=== PATIENT | female | born 2000 | race Two or more races ===

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

== ENCOUNTER 2021-02-13 11:50 | Emergency (ER) | payer SELFPAY ==
[~2021-02-13] VITALS: Ht 165.1 cm; Wt 92.0 kg
[~2021-02-13 11:50] MED LIST: CHOL500016 PO; FOLI1TAB16 PO; HYDR-3164 PO; NAPR-514 PO; PREN1TAB58 PO
[2021-02-13 12:17] LABS: BILIRUBIN,URINE NEGATIVE (NEG); CLARITY,URINE CLEAR; COLOR,URINE YELLOW; NITRITE,URINE NEGATIVE (NEG); PROTEIN,URINE NEGATIVE (NEG-TRACE); UROBILINOGEN,URINE 0.2 mg/dL (0.2 mg/dL)
--- NOTE | 2021-02-13 12:23 | PHYS DOC ---
Past Medical History Past Medical History: No Pertinent History Past Surgical History: No Surgical History Smoking Status: Never Smoker Alcohol Use: None General Adult EDM: Chief Complaint: ABDOMINAL PAIN HPI: HPI: Patient is a 20 year old female who presented to ER due to low abdominal pain on the left side since yesterday. Patient denies any nausea vomiting. Patient states she also have her menstrual PERIOD daughter 2 days ago. Patient denies any fever, no cough, no nausea vomiting. Patient states she is spotting at this time. Patient described the pain at sharp and aching in nature. Review of Systems: Review of Systems: Constitutional: Denies fever or chills. [] Eyes: Denies change in visual acuity. [] HENT: Denies nasal congestion or sore throat. [] Respiratory: Denies cough or shortness of breath. [] Cardiovascular: Denies chest pain or edema. [] GI: Positive for lower abdominal pain associated with no nausea vomiting or diarrhea. : Denies dysuria. [] Musculoskeletal: Denies back pain or joint pain. [] Integument: Denies rash. [] Neurologic: Denies headache, focal weakness or sensory changes. [] Endocrine: Denies polyuria or polydipsia. [] Lymphatic: Denies swollen glands. [] Psychiatric: Denies depression or anxiety. [] Heart Score: C/O Chest Pain: N/A Risk Factors: Risk Factors: DM, Current or recent (<one month) smoker, HTN, HLP, family history of CAD, obesity. Risk Scores: Score 0 - 3: 2.5% MACE over next 6 weeks - Discharge Home Score 4 - 6: 20.3% MACE over next 6 weeks - Admit for Clinical Observation Score 7 - 10: 72.7% MACE over next 6 weeks - Early Invasive Strategies Allergies: Allergies: Allergies Coded Allergies Type Severity Reaction Last Updated Verified No Known Drug Allergies 12/12/17 No Physical Exam: PE: Constitutional: Well developed, well nourished, no acute distress, non-toxic appearance. [] HENT: Normocephalic, atraumatic, bilateral external ears normal, oropharynx moist, no oral exudates, nose normal. [] Eyes: PERRLA, EOMI, conjunctiva normal, no discharge. [] Neck: Normal range of motion, no tenderness, supple, no stridor. [] Cardiovascular:Heart rate regular rhythm, no murmur [] Lungs & Thorax: Bilateral breath sounds clear to auscultation [] Abdomen: Bowel sounds normal, soft, there is tenderness in lower abdominal area, no masses, no pulsatile masses. [] Skin: Warm, dry, no erythema, no rash. [] Back: No tenderness, no CVA tenderness. [] Extremities: No tenderness, no cyanosis, no clubbing, ROM intact, no edema. [] Neurologic: Alert and oriented X 3, normal motor function, normal sensory function, no focal deficits noted. [] Psychologic: Affect normal, judgement normal, mood normal. [] Current Patient Data: Labs: Laboratory Tests Test 02/13/21 12:00 POC Urine HCG, Qualitative Hcg negative (Negative) Vital Signs: Vital Signs Date Time Temp Pulse Resp B/P (MAP) Pulse Ox O2 Delivery O2 Flow Rate FiO2 02/13/21 11:51 97.9 86 18 116/72 (87) 99 Room Air 97.9 EKG: EKG: [] Radiology/Procedures: Radiology/Procedures: [facility] [address] [place] [address] IMAGING REPORT Signed PATIENT: SG BARRAGAN MACCOUNT: [id number] : 2000 LOCATION: ER AGE: 20 SEX: F EXAM STATUS: REG ER ORD. PHYSICIAN: ABDELRAHMAN LEWIS DO REASON: LOWER ABDOMINAL PAIN SINCE YESTERDAY PROCEDURE: CT ABD PELV W/ IV CONTRST ONLY Exam Date: 02/13/2021 12:[address] ABDOMEN+PELVIS W Indication: Reason: LOWER ABDOMINAL PAIN SINCE YESTERDAY / Spl. Instructions: [id number] 75ML / History: TECHNIQUE: CT examination of the abdomen and pelvis was performed following the administration of nonionic intravenous contrast. One or more of the following dose reduction techniques were utilized: *Automated exposure control (AEC) *Adjustment of mA and/or kV according to patient size *Use of iterative reconstruction technique *CT scan done according to ALARA, or ALARA/IMAGE GENTLY FINDINGS: The visualized lung bases are clear. The liver, gallbladder, spleen, pancreas, adrenal glands and kidneys are normal. Urinary bladder is normal in appearance. There is a 4.5 cm left adnexal cyst. Trace free fluid in the pelvis is nonspecific, likely physiologic. There is no bowel obstruction or inflammation. No evidence for acute appendicitis. No significant atherosclerotic calcifications are seen. No lymphadenopathy is seen. Osseous structures are intact. IMPRESSION: 4.5 cm left adnexal cyst noted. Otherwise no evidence of acute intra-abdominal pathology. Electronically signed by: Tila Young MD (02/13/2021 1:29 PM) [id number] DICTATED and SIGNED BY: TILA YOUNG MD DATE: 02/13/21 [id number] 0 [][facility] [address] [place], [place] [id number] IMAGING REPORT Signed PATIENT: SG BARRAGAN MACCOUNT: [id number] : 2000 LOCATION: ER AGE: 20 SEX: F EXAM STATUS: REG ER ORD. PHYSICIAN: ABDELRAHMAN LEWIS DO REASON: left side pelvic pain PROCEDURE: PELVIS ULTRASOUND US PELVIS COMPLETE History: Reason: left side pelvic pain / Spl. Instructions: / History: Comparison: CT February 13, 2021 Technique: Grayscale and color Doppler imaging of the pelvis was performed using transabdominal technique. Findings: The uterus measures 8.7 x 5.5 x 4.5 cm. Uterus has an unremarkable appearance. The endometrial stripe measures 6 mm. Right ovary measures 4.5 x 2.3 x 2.1 cm. Left ovary measures 6.4 x 4.3 x 4.0 cm. Left ovarian cyst measures 5.6 cm. Normal Doppler flow to the ovaries. No adnexal masses are seen. IMPRESSION: 1. Left ovarian cyst. Recommend one-year follow-up. Electronically signed by: Jose Ramon Bess DO (02/13/2021 1:58 PM) [id number] DICTATED and SIGNED BY: JOSE RAMON BESS DO DATE: 02/13/21 [id number] 0 Course & Med Decision Making: Course & Med Decision Making Pertinent Labs and Imaging studies reviewed. (See chart for details) Patient is a 20-year-old female who presented to ER due to left lower abdominal pain, CT scan her abdomen pelvic show a large adnexa cysts on the left side, pelvic ultrasound showed that she had a 5.6 cm ovarian cyst, no evidence of torsion. Patient was given Toradol IV in ER for pain control, patient felt much better. Patient will be discharged home. Jose Disclaimer: Jose Disclaimer: This electronic medical record was generated, in whole or in part, using a voice recognition dictation system. 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 Patient Instructions: Ovarian Cyst Additional Instructions: Thank you for visiting our Emergency Department. We appreciate you trusting us with your care. If any additional problems come up don't hesitate to return to visit us. Please follow up with your primary care provider so they can plan additional care if needed and know about the problem that you had. If symptoms worsen come back to the Emergency Department. Any concerning symptoms that start such as chest pain, shortness of air, weakness or numbness on one side of the body, running high fevers or any other concerning symptoms return to the ER. Scripts Naproxen Sodium (ANAPROX DS) 550 Mg Tablet 1 TAB PO BID PRN for PAIN for 15 Days, #30 TAB 0 Refills Prov: ABDELRAHMAN LEWIS DO 02/13/21 ABDELRAHMAN LEWIS DO Feb 13, 2021 12:23
[2021-02-13 12:27] LABS: BACTERIA,URINE MODERATE /HPF (0-FEW); RBC,URINE TNTC /HPF (0-2)
[2021-02-13 12:30] LABS: BASO % 1 % (0-3); EOS % 1 % (0-3); HEMATOCRIT 30.4 % (36.0-47.0); HEMOGLOBIN 9.4 g/dL (12.0-15.5); LYMPH # 2.2 x10^3/uL (1.0-4.8); LYMPH % 27 % (24-48); MEAN CORPUSCULAR HEMOGLOBIN 21 pg (25-35); MEAN CORPUSCULAR HGB CONC 31 g/dL (31-37); MEAN CORPUSCULAR VOLUME 69 fL (79-100); MONO # 0.8 x10^3/uL (0.0-1.1); MONO % 10 % (0-9); NEUT # 5.2 x10^3/uL (1.8-7.7); NEUT % 62 % (31-73); PLATELET COUNT 446 x10^3/uL (140-400); RED BLOOD COUNT 4.43 x10^6/uL (3.50-5.40); RED CELL DISTRIBUTION WIDTH 17.5 % (11.5-14.5); WHITE BLOOD COUNT 8.3 x10^3/uL (4.0-11.0)
[2021-02-13] MEDS: KETOROLAC 30 MG/ML VIAL. IVP ONE (12:32)
[2021-02-13 12:39] LABS: CALCIUM 8.6 mg/dL (8.5-10.1); CREATININE 0.7 mg/dL (0.6-1.0); GFR 107.8; POTASSIUM 3.7 mmol/L (3.5-5.1)
[2021-02-13 12:45] LABS: ALBUMIN 3.2 g/dL (3.4-5.0); ALBUMIN/GLOBULIN RATIO 0.7 (1.0-1.7); TOTAL BILIRUBIN 0.2 mg/dL (0.2-1.0); TOTAL PROTEIN 7.5 g/dL (6.4-8.2)
[2021-02-13 12:58] LABS: ANISOCYTOSIS PRESENT; HYPOCHROMIA PRESENT; MICROCYTOSIS PRESENT; PLT ESTIMATE INCREASED (ADEQUATE); POLYCHROMASIA PRESENT
[2021-02-13] MEDS ORDERED: CONTRAST GIVEN. MC PRN (13:00)
[2021-02-13] MEDS: IOHEXOL 300 MG/ML 100ML VIAL. IV ONE (13:08)
--- NOTE | 2021-02-13 13:31 | RAD ---
Exam Date: 02/13/2021 12:[address] ABDOMEN+PELVIS W Indication: Reason: LOWER ABDOMINAL PAIN SINCE YESTERDAY / Spl. Instructions: [id number] 75ML / History: TECHNIQUE: CT examination of the abdomen and pelvis was performed following the administration of no nionic intravenous contrast. One or more of the following dose reduction techniques were utilized: *Automated exposure control (AEC) *Adjustment of mA and/or kV according to patient size *Use of iterative reconstruction technique *CT scan done according to ALARA, or ALARA/IMAGE GENTLY FINDINGS: The visualized lung bases are clear. The liver, gallbladder, spleen, pancreas, adrenal glands and kidneys are normal. Urinary bladder is normal in appearance. There is a 4.5 cm left adnexal cyst. Trace free fluid in the pelvis is nonspecific, likely physiologic. There is no bowel obstruction or inflammation. No evidence for acute appendicitis. No significant atherosclerotic calcifications are seen. No lymphadenopathy is seen. Osseous structures are intact. IMPRESSION: 4.5 cm left adnexal cyst noted. Otherwise no evidence of acute intra-abdominal pathology. Electronically signed by: Izaiah Young MD (02/13/2021 1:29 PM) [id number]
--- NOTE | 2021-02-13 14:01 | RAD ---
US PELVIS COMPLETE History: Reason: left side pelvic pain / Spl. Instructions: / History: Comparison: CT February 13, 2021 Technique: Grayscale and color Doppler imaging of the pelvis was performed using transabdominal techn ique. Findings: The uterus measures 8.7 x 5.5 x 4.5 cm. Uterus has an unremarkable appearance. The endometrial stri pe measures 6 mm. Right ovary measures 4.5 x 2.3 x 2.1 cm. Left ovary measures 6.4 x 4.3 x 4.0 cm. Left ovarian cyst measures 5.6 cm. Normal Doppler flow to the ovaries. No adnexal masses are seen. IMPRESSION: 1. Left ovarian cyst. Recommend one-year follow-up. Electronically signed by: Jose Ramon Bess DO (02/13/2021 1:58 PM) [id number]
[2021-02-13] MEDS ORDERED: NAPR-682 PO (14:09)
[2021-02-13 14:15] VITALS: BP 103/57
== END 2021-02-13 14:22 | disposition home or self-care (01) ==
LOC: ER 11:50
DX: N83.202 Unspecified ovarian cyst, left side (principal)
CPT/HCPCS: 36415; 74177; 76856; 80053; 81001; 81025; 83735; 85025; 87086; 96374; 99285; J1885; Q9967

== ENCOUNTER 2021-05-16 08:29 | Day surgery (SDC) | payer SELFPAY ==
[~2021-05-16] VITALS: Ht 165.1 cm; Wt 90.0 kg
[~2021-05-16 08:29] MED LIST changes: +CEPH500T PO; +HYDROmorphone 2 MG/ML VIAL IVP PRN; +IV RINGERS,LACTATED 1000ML 1,000 ML IV SCH; +MORPHINE SULFATE 2 MG/ML INJ. IVP PRN; +NAPR-682 PO; +NAPR-695 PO; +NITR100C62 PO; +ONDA4TAB12 PO; +PROCHLORPERAZINE 10 MG/2 ML VIAL. IVP PRN; +ceFAZolin SODIUM IV Push 1 GM VIAL. IVP PRN; +fentaNYL PF VIAL 100 MCG/2 ML VIAL IVP PRN
[2021-05-16] MEDS ORDERED: LIDOCAINE 2% PF 5 ML VIAL. ONE (09:38)
[2021-05-16] MEDS ORDERED: MIDAZOLAM HCL/PF 2 MG/2 ML VIAL. ONE (09:38)
[2021-05-16] MEDS ORDERED: ROCURONIUM 50 MG/5 ML VIAL. ONE (09:38)
[2021-05-16] MEDS ORDERED: FAMOTIDINE 20 MG/2 ML VIAL ONE (09:38)
[2021-05-16] MEDS ORDERED: ONDANSETRON PF 4 MG/2 ML VIAL. ONE ×2 (09:38→09:39)
[2021-05-16] MEDS ORDERED: fentaNYL PF VIAL 100 MCG/2 ML VIAL ONE ×2 (09:38→11:35)
[2021-05-16] MEDS ORDERED: PROPOFOL 10 MG/ML (20ML) VIAL. IV ONE (09:38)
[2021-05-16] MEDS ORDERED: DEXAMETHASONE SOD PHOS 4 MG/ML VIAL ONE (09:39)
[2021-05-16] MEDS ORDERED: BUPIVACAINE-EPI 0.25%-1:200000 MPF 30 ML VIAL. ONE (09:47)
[2021-05-16] MEDS ORDERED: SURGICEL HEMOSTAT 4X8 EACH. ONE (09:47)
[2021-05-16] MEDS ORDERED: KETOROLAC 30 MG/ML VIAL. ONE (10:47)
[2021-05-16] MEDS ORDERED: DESFLURANE 61 TO 120 MINUTES IH ONE (10:47)
[2021-05-16] MEDS ORDERED: SEVOFLURANE > 120 MINUTES. IH ONE (10:47)
[2021-05-16] MEDS ORDERED: GLYCOPYRROLATE 1 MG/5 ML VIAL. ONE (10:48)
[2021-05-16] MEDS ORDERED: NEOSTIGMINE METHYLSULFATE 5 MG/5 ML SYRINGE. ONE (10:49)
--- NOTE | 2021-05-16 10:59 | PDOC ---
BRIEF OPERATIVE NOTE Date: May 16, 2021 Pre-Op Diagnosis PAUL Cyst Post-Op Diagnosis Left Paratubal Cyst Procedure Performed [facility] Left Paratubal Cystectomy Surgeon Dr. Heaton Anesthesia Type: General Blood Loss 10 ml Specimens Obtained Left paratubal cyst wall Findings nml uterus, nml ovaries sherley., nml Right fallopian tube; Left paratubal cyst 6 cm size Complications none Operative Note see dictation JUSTINO HEATON Jr, MD May 16, 2021 10:59
[2021-05-16] MEDS ORDERED: OXYC1TAB15 PO (11:00)
--- NOTE | 2021-05-16 11:03 | DISCH ---
DISCHARGE INSTRUCTIONS Condition on Discharge Condition on Discharge: Stable Activity After Discharge Activity Instructions for Disc: Activity as tolerated Lifting Instructions after Dis: No heavy lifting Driving Instructions after Dis: Do not drive today Diet after Discharge Diet after Discharge: Regular Contacting the D[facility] after DC Call your doctor for: Concerns you may have Follow-Up Follow up with: Dr. Heaton in 1 week JUSTINO HEATON Jr, MD May 16, 2021 11:03
[2021-05-16] MEDS: fentaNYL PF VIAL 100 MCG/2 ML VIAL IVP PRN ×2 (11:47→12:04)
[2021-05-16] MEDS ORDERED: oxyCODONE/APAP 5/325 1 TAB TABLET PO ONE (12:00)
--- NOTE | 2021-05-16 12:06 | OP ---
DATE OF SURGERY: 05/16/2021 PREOPERATIVE DIAGNOSIS: Left ovarian cyst. POSTOPERATIVE DIAGNOSIS: Left paratubal cyst. PROCEDURE: Laparoscopic left paratubal cystectomy. SURGEON: Dr. Nila Heaton. ANESTHESIA: GETA. ESTIMATED BLOOD LOSS: 10 mL. COMPLICATIONS: None. FINDINGS: Normal uterus, normal ovaries bilaterally. Normal right fallopian tube. Left paratubal cyst, 6 cm size. SUMMARY: This is a 20-year-old who presented with persistent suspected left ovarian cyst and abdominal pain. She was counseled on the risks, benefits and expectations of laparoscopic left ovarian cystectomy and voiced clear understanding to proceed. DESCRIPTION OF PROCEDURE: The patient was taken to surgery suite and placed in dorsal lithotomy position, was prepped with Betadine solution for vaginal prep and ChloraPrep for abdominal prep. After adequate anesthesia, bivalve speculum was placed vaginally. The anterior lip of the cervix was grasped with a single tooth tenaculum. Uterine acorn manipulator was then placed. The bivalve speculum was removed. Attention was now placed on the abdomen. A small transverse skin incision was made just below the umbilicus with a scalpel. The Veress needle was then placed through the infraumbilical incision site. The abdomen was allowed to insufflate up to 1.5 liters of CO2 gas. The Veress needle was then removed. A 5 mm trocar was placed. Scope was positioned. The uterus appeared normal size. The right fallopian tube and ovary appeared normal. The left ovary appeared normal. There was a left paratubal cyst of 6 cm size. Two additional incisions were made in the left lower quadrant, through which a 5 mm trocar and an 8 mm trocar was placed with the aid of Paolo graspers. The left paratubal cyst was then grasped and isolated with the aid of EnSeal device. The paratubal cyst wall was dissected away from the fallopian tube and entered with the EnSeal device. Suction irrigation was utilized to decompress the left paratubal cyst. The remainder of the left paratubal cyst was removed with blunt dissection and the aid of EnSeal device. The fallopian tube was intact and without any injury. The left paratubal cyst wall was removed. Suction irrigation was utilized to verify good hemostasis. A small amount of normal saline was left in the posterior cul-de-sac. The trocars were then removed under direct visualization. The abdomen was allowed to deflate as much as possible along with mechanical manipulation. Three skin incisions were reapproximated using 4-0 Vicryl suture in subcuticular manner. 0.25% Marcaine with epinephrine was injected at each incision site. The uterine acorn manipulator and single tooth tenaculum were then removed. The patient tolerated the procedure well and was taken to recovery room in stable condition. Sponge and needle count correct x 3. MICHELLE DR: Antionette TID: [id number]
[2021-05-16 12:32] VITALS: BP 106/58
--- NOTE | 2021-05-20 15:09 | PATHOLOGY ---
[facility] Accession Number: [id number] . 01 Material submitted: . ovary - PARATUBAL CYST. Modifiers: left, PARATUBAL . 01 Clinical history: . LEFT OVARIAN CYST LEFT PARATUBAL CYSTECTOMY . 02 Diagnosis: Left paratubal cystectomy: - Paratubal cyst. (JPM:[facility]; 05/20/2021) [facility] 05/20/2021 0851 Local . 02 Comment: There is no evidence of malignancy. (JPM:[facility]; 05/20/2021) . 02 Electronically signed: . Jax Burch MD, Pathologist NPI- [id number] . 01 Gross description: . Received in formalin labeled "Flormannieabary, Emy and paratubal cyst". Received is a previously opened paratubal cyst measuring 3.0 x 0.2 x 1.5 cm with a wall thickness measuring 0.1 cm. Sectioning reveals no other grossly apparent lesions. The specimen is representatively submitted in cassette B1.([facility]; 05/17/2021) [facility] 05/17/2021 1804 Local . 02 Pathologist provided ICD-10: N83.8 . 02 CPT . 841469 Specimen Comment: A courtesy copy of this report has been sent to [phone] Specimen Comment: Report sent to Performed at: 01 [facility] [address], [place] [id number] MD Jax Schreiber MD Phone: [phone] Performed at: 02 [facility] [address] [place], [place] [id number] MD Jax Burch MD Phone: [phone]
== END 2021-05-16 13:15 | disposition home or self-care (01) ==
LOC: SURG 08:29
PROVIDERS: ATTEND Obstetrics & Gynecology
DX: N83.8 Other noninflammatory disorders of ovary, fallopian tube and broad ligament (principal); N83.202 Unspecified ovarian cyst, left side; E66.9 Obesity, unspecified; Z79.899 Other long term (current) drug therapy; Z98.890 Other specified postprocedural states; Z88.8 Allergy status to other drugs, medicaments and biological substances
CPT/HCPCS: 58662; 81025; 88304; A4930; A6219; J0690; J1100; J1885; J2250; J2405; J2704; J2710; J3010; J3490; A4223

== ENCOUNTER 2022-01-13 21:50 | Emergency (ER) | payer SELFPAY ==
[~2022-01-13] VITALS: Ht 165.1 cm; Wt 94.5 kg
[~2022-01-13 21:50] MED LIST changes: -HYDROmorphone 2 MG/ML VIAL IVP PRN; -IV RINGERS,LACTATED 1000ML 1,000 ML IV SCH; -MORPHINE SULFATE 2 MG/ML INJ. IVP PRN; +OXYC1TAB15 PO; -PROCHLORPERAZINE 10 MG/2 ML VIAL. IVP PRN; -ceFAZolin SODIUM IV Push 1 GM VIAL. IVP PRN; -fentaNYL PF VIAL 100 MCG/2 ML VIAL IVP PRN
[2022-01-13 22:45] VITALS: BP 126/79
[2022-01-14] MEDS ORDERED: AMOX1TAB11 PO (00:06)
--- NOTE | 2022-01-14 00:07 | PHYS DOC ---
Past Medical History Past Medical History: No Pertinent History Past Surgical History: No Surgical History Smoking Status: Never Smoker Alcohol Use: None General Adult EDM: Chief Complaint: Congestion HPI: HPI: 21-year-old female who denies any significant past medical history, presents the ED with her boyfriend, (patient consents to his/her/their knowledge and involvement in pts' medical care), complains of "nasal burning," nasal congestion and clogged ears (right ear worse than left) with associated chills and dizziness for the past 3 days. Has been vaccinated for COVID. Non-smoker. Has no underlying lung disease. No known sick contacts. Boyfriend is asymptomatic. Review of Systems: Review of Systems: Constitutional: Denies fever or confusion Eyes: Denies change in visual acuity. [] HENT: Denies rhinorrhea or sore throat. [] Respiratory: Denies cough or shortness of breath. [] Cardiovascular: Denies chest pain or edema. [] GI: Denies abdominal pain, nausea, vomiting, bloody stools or diarrhea. [] : Denies dysuria or vaginal bleeding Musculoskeletal: Denies back pain or joint pain. [] Integument: Denies rash or diaphoresis Neurologic: Denies headache, focal weakness or sensory changes. [] Endocrine: Denies polyuria or polydipsia. [] Lymphatic: Denies swollen glands. [] Psychiatric: Denies depression or anxiety. [] Heart Score: C/O Chest Pain: No Risk Factors: Risk Factors: DM, Current or recent (<one month) smoker, HTN, HLP, family history of CAD, obesity. Risk Scores: Score 0 - 3: 2.5% MACE over next 6 weeks - Discharge Home Score 4 - 6: 20.3% MACE over next 6 weeks - Admit for Clinical Observation Score 7 - 10: 72.7% MACE over next 6 weeks - Early Invasive Strategies Allergies: Allergies: Allergies Coded Allergies Type Severity Reaction Last Updated Verified pineapple Allergy Unknown Swelling 05/16/21 Yes Physical Exam: PE: Constitutional: Well developed, well nourished, no acute distress, non-toxic appearance, HENT: Normocephalic, atraumatic, erythematous right tympanic membrane with effusion, mildly erythematous left tympanic membrane with no effusion, no pharyngeal erythema or exudates, Eyes: EOMI, conjunctiva normal, no discharge. Neck: Normal range of motion, supple, right anterior cervical lymphadenopathy Cardiovascular: S1/2 present, regular rhythm Lungs & Thorax: Speaking in full sentences, bilateral equal chest rise, no tachypnea or increased work of breathing, nasal voice Skin: Warm, dry, no erythema, no rash. [] Extremities: No tenderness, no cyanosis, Neurologic: Alert and oriented X 3, normal motor function, normal sensory function, no focal deficits noted. [] Psychologic: Affect normal, judgement normal, mood normal. [] Current Patient Data: Vital Signs: Vital Signs Date Time Temp Pulse Resp B/P (MAP) Pulse Ox O2 Delivery O2 Flow Rate FiO2 01/13/22 22:45 98.5 87 17 126/79 (95) 96 Room Air 98.5 EKG: EKG: [] Radiology/Procedures: Radiology/Procedures: [] Course & Med Decision Making: Course & Med Decision Making Pertinent Labs and Imaging studies reviewed. (See chart for details) Concern for right otitis media, in the setting of upper respiratory infection. Patient is well-appearing, afebrile and tolerating oral intake. Will prescribe Augmentin. Will discharge home with strict ED return precautions were given for neck stiffness, blurry vision, headache or dehydration. Encouraged urgent outpatient follow-up with PMD for repeat evaluation. Life-threatening processes were considered but are low suspicion at this time, given history, physical exam and ED workup. Pt was educated on all prescription medications and adverse effects. All patient's questions were answered and pt was stable at time of discharge. Life/limb-threatening differential includes but is not limited to, auricular hematoma or perichondritis, malignant otitis externa, otitis externa or media, otomycosis, bullous myringitis, mastoiditis, hearing loss or vestibular disorder, tympanic membrane rupture/perforation/barotrauma, herpes zoster oticus , contact dermatitis, cholesteatoma, meningitis/encephalitis, brain abscess or venous/cavernous/cerebral sinus thrombosis. I have spoken with the patient and/or caregivers. I explained the patient's condition, diagnoses and treatment plan based on the information available to me at this time. I have answered the patient and/or caregiver's questions and addressed any concerns. The patient and/or caregivers have a good understanding of patient's diagnosis, condition and treatment plan as can be expected at this point. Vital signs have been stable. Patient's condition is stable and appropriate for discharge from the emergency department. Patient will pursue further outpatient evaluation with primary care physician or other designated or consulting physician as outlined in the discharge instructions. The patient and/or caregivers are agreeable to this plan of care and follow-up instructions have been explained in detail. The patient and/or caregivers have received these instructions in written form and have expressed an understanding of the discharge instructions. The patient and/or caregivers are aware that any significant change of condition or worsening of symptoms should prompt immediate return to this or the closest emergency department or call to 911. Jose Disclaimer: Qinec Disclaimer: This electronic medical record was generated, in whole or in part, using a voice recognition dictation system. Departure Departure Impression: Primary Impression: Otitis media Additional Impression: Upper respiratory infection Disposition: HOME / SELF CARE / HOMELESS Condition: STABLE Referrals: CANDIDO LR MD (PCP) Follow-up with your primary care physician in 24 to 48 hours OR FOLLOW UP WITH FAMILY MEDICINE: [address] [place] [address] Patient Instructions: Otitis Media with Effusion, Upper Respiratory Infection, Adult Additional Instructions: Return to ED immediately if your oxygen level drops below 90% (purchase a pulse oximetry at a medical supply store), difficulties breathing including rapid breathing or increased work of breathing (skin sucking under ribs), chest pain or stroke-like symptoms (facial droop, speech changes, arm/leg weakness). EMERGENCY DEPARTMENT GENERAL DISCHARGE INSTRUCTIONS Thank you for coming to [facility] Emergency Department (ED) today and trusting us with you care. We trust that you had a positive experience in our Emergency Department. If you wish to speak to the department management, you may call the Director at [phone]. YOUR FOLLOW UP INSTRUCTIONS ARE FOLLOWS: 1. Do you have a private Doctor? If you do not have a private doctor, please ask for a resource list of physicians or clinics that may be able to assist you with follow up care. 2. The Emergency Physicain has interpreted your x-rays. The X-Ray specialist will also review them. If there is a change in the findings, you will be notified in 48 hours when at all possible. 3. A lab test or culture has been done, your results will be reviewed and you w ill be notified if you need a change in treatment. ADDITIONAL INSTRUCTIONS AND INFORMATION: 1. Your care today has been supervised by a physician who is specially trained in emergency care. Many problems require more than one evaluation for a complete diagnosis and treatment. We recommend that you schedule your follow up appointment as recommended to ensure complete treatment of you illness or injury. If you are unable to obtain follow up care and continue to have a problem, or if your condition worsens, we recommend that you return to the ED. 2. We are not able to safely determine your condition over the phone nor are we able to give sound medical advice over the phone. For these safety reasons, if you call for medical advice we will ask you to come to the ED for further evaluation. 3. If you have any questions regarding these discharge instructions please call the ED at [phone]. SAFETY INFORMATION: In the interest of safety, wellness, and injury prevention; we encourage you to wear your sealbelt, if you smoke; quite smoking, and we encourage family to use a protective helmet for bicycling and other sporting events that present an increased risk for head injury. IF YOUR SYMPTOMS WORSEN OR NEW SYMPTOMS DEVELOP, OR YOU HAVE CONCERNS ABOUT YOUR CONDITION; OR IF YOUR CONDITION WORSENS WHILE YOU ARE WAITING FOR YOUR FOLLOW UP APPOINTMENT; EITHER CONTACT YOUR PRIMARY CARE DOCTOR, THE PHYSICIAN WHOSE NAME AND NUMBER YOU WERE GIVEN, OR RETURN TO THE ED IMMEDIATELY. Scripts Amoxicillin/Potassium Clav (AMOX TR-K CLV 875-125 MG TAB) 1 Each Tablet 1 TAB PO BID for 10 Days, #20 TAB Prov: HALLEY GARCIA DO 01/14/22 HALLEY GARCIA DO Jan 14, 2022 00:06
== END 2022-01-14 00:14 | disposition home or self-care (01) ==
LOC: ER 21:50
DX: H66.93 Otitis media, unspecified, bilateral (principal); J06.9 Acute upper respiratory infection, unspecified; Z91.018 Allergy to other foods
CPT/HCPCS: 99283

== ENCOUNTER 2022-03-10 15:15 | Emergency (ER) | payer SELFPAY ==
[~2022-03-10] VITALS: Ht 160 cm; Wt 94.3 kg
[~2022-03-10 15:15] MED LIST changes: +AMOX1TAB11 PO
[2022-03-10] MEDS ORDERED: ONDANSETRON PF 4 MG/2 ML VIAL. IVP ONE (17:15)
[2022-03-10] MEDS ORDERED: IV NORMAL SALINE 1000ML BAG 1,000 ML IV ONE (17:15)
[2022-03-10 17:47] LABS: BACTERIA,URINE MODERATE /HPF (0-FEW); RBC,URINE 0 /HPF (0-2)
[2022-03-10 18:06] LABS: BASO # 0.1 x10^3/uL (0.0-0.2); BASO % 1 % (0-3); EOS % 1 % (0-3); HEMATOCRIT 35.7 % (36.0-47.0); HEMOGLOBIN 11.7 g/dL (12.0-15.5); LYMPH # 1.9 x10^3/uL (1.0-4.8); LYMPH % 21 % (24-48); MEAN CORPUSCULAR HEMOGLOBIN 26 pg (25-35); MEAN CORPUSCULAR HGB CONC 33 g/dL (31-37); MEAN CORPUSCULAR VOLUME 80 fL (79-100); MONO # 0.7 x10^3/uL (0.0-1.1); MONO % 7 % (0-9); NEUT # 6.4 x10^3/uL (1.8-7.7); NEUT % 70 % (31-73); PLATELET COUNT 291 x10^3/uL (140-400); RED BLOOD COUNT 4.49 x10^6/uL (3.50-5.40); RED CELL DISTRIBUTION WIDTH 15.9 % (11.5-14.5); WHITE BLOOD COUNT 9.1 x10^3/uL (4.0-11.0)
[2022-03-10 18:23] LABS: CALCIUM 9.1 mg/dL (8.5-10.1); CREATININE 0.7 mg/dL (0.6-1.0); GFR 106.7; POTASSIUM 3.5 mmol/L (3.5-5.1)
[2022-03-10 18:30] LABS: ALBUMIN 3.2 g/dL (3.4-5.0); ALBUMIN/GLOBULIN RATIO 0.7 (1.0-1.7); TOTAL BILIRUBIN 0.3 mg/dL (0.2-1.0); TOTAL PROTEIN 7.8 g/dL (6.4-8.2)
[2022-03-10] MEDS ORDERED: cefTRIAXone IV Push 1 GM VIAL. IVP ONE (19:30)
[2022-03-10] MEDS ORDERED: CEPH500T PO (21:46)
--- NOTE | 2022-03-10 21:47 | PHYS DOC ---
Past Medical History Past Medical History: No Pertinent History Past Surgical History: No Surgical History Smoking Status: Never Smoker Alcohol Use: None General Adult EDM: Chief Complaint: VOMITING IN HPI: HPI: Patient is a 21 year old female 2 para 1 currently 6 weeks presenting to the ED today with nausea and vomiting for 4 days. Patient denies any fever. Reports generalized lower abdominal pain described as mild and crampy. Denies any vaginal bleeding. Denies any concerns for STDs or unusual vaginal discharge. Denies anything specifically exacerbating or relieving her abdominal pain but she states it is intermittent. Review of Systems: Review of Systems: Constitutional: Denies fever or chills. [] Eyes: Denies change in visual acuity. [] HENT: Denies nasal congestion or sore throat. [] Respiratory: Denies cough or shortness of breath. [] Cardiovascular: Denies chest pain or edema. [] GI: Reports lower abdominal pain, nausea and vomiting : Denies dysuria. [] Musculoskeletal: Denies back pain or joint pain. [] Integument: Denies rash. [] Neurologic: Denies headache, focal weakness or sensory changes. [] Psychiatric: Denies depression or anxiety. [] Heart Score: C/O Chest Pain: N/A Risk Factors: Risk Factors: DM, Current or recent (<one month) smoker, HTN, HLP, family history of CAD, obesity. Risk Scores: Score 0 - 3: 2.5% MACE over next 6 weeks - Discharge Home Score 4 - 6: 20.3% MACE over next 6 weeks - Admit for Clinical Observation Score 7 - 10: 72.7% MACE over next 6 weeks - Early Invasive Strategies Current Medications: Current Medications Medications (Trade) Dose Ordered Sig/Breanna Start Time Stop Time Status Last Admin Dose Admin Ceftriaxone Sodium (Rocephin) 1 gm 1X ONCE 03/10/22 19:30 03/10/22 19:31 DC 03/10/22 19:30 1 GM Ondansetron HCl (Zofran) 4 mg 1X ONCE 03/10/22 17:15 03/10/22 17:16 DC 03/10/22 17:51 4 MG Sodium Chloride 1,000 ml @ 1,000 mls/hr 1X ONCE 03/10/22 17:15 03/10/22 18:14 DC 03/10/22 17:50 1,000 MLS/HR Allergies: Allergies: Allergies Coded Allergies Type Severity Reaction Last Updated Verified pineapple Allergy Unknown Swelling 05/16/21 Yes Physical Exam: PE: Constitutional: Well developed, well nourished, no acute distress, non-toxic appearance. [] HENT: Normocephalic, atraumatic, bilateral external ears normal, oropharynx moist, no oral exudates, nose normal. [] Eyes: PERRLA, EOMI, conjunctiva normal, no discharge. [] Neck: Normal range of motion, no tenderness, supple, no stridor. [] Cardiovascular:Heart rate regular rhythm, no murmur [] Lungs & Thorax: Bilateral breath sounds clear to auscultation [] Abdomen: Bowel sounds normal, soft, no tenderness, no masses, no pulsatile masses. [] Skin: Warm, dry, no erythema, no rash. [] Back: No tenderness, no CVA tenderness. [] Extremities: No tenderness, no cyanosis, no clubbing, ROM intact, no edema. [] Neurologic: Alert and oriented X 3, normal motor function, normal sensory function, no focal deficits noted. [] Psychologic: Affect normal, judgement normal, mood normal. [] Current Patient Data: Labs: Laboratory Tests Test 03/10/22 17:15 03/10/22 17:25 03/10/22 17:46 Urine Collection Type Unknown Urine Color (Auto) Yellow Urine Turbidity Hazy Urine pH (Auto) 7.0 (<5.0-8.0) Urine Specific [place] 1.027 (1.000-1.030) Urine Protein (Auto) 30 mg/dL (Negative) Urine Glucose (Auto)(UA) Negative mg/dL (Negative) Urine Ketones (Auto) Trace mg/dL (Negative) Urine Blood (Auto) Negative (Negative) Urine Nitrite Negative (Negative) Urine Bilirubin (Auto) Negative (Negative) Urine Urobilinogen (Auto) 6 mg/dL (Normal) Urine Leukocyte Esterase (Auto) Large (Negative) Urine RBC 0 /HPF (0-2) Urine WBC 5-10 /HPF (0-4) Urine Squamous Epithelial Cells Mod /LPF Urine Bacteria Moderate /HPF (0-FEW) Urine Mucus Mod /LPF POC Urine HCG, Qualitative Hcg positive (Negative) White Blood Count 9.1 x10^3/uL (4.0-11.0) Red Blood Count 4.49 x10^6/uL (3.50-5.40) Hemoglobin 11.7 g/dL (12.0-15.5) L Hematocrit 35.7 % (36.0-47.0) L Mean Corpuscular Volume 80 fL (79-100) Mean Corpuscular Hemoglobin 26 pg (25-35) Mean Corpuscular Hemoglobin Concent 33 g/dL (31-37) Red Cell Distribution Width 15.9 % (11.5-14.5) H Platelet Count 291 x10^3/uL (140-400) Neutrophils (%) (Auto) 70 % (31-73) Lymphocytes (%) (Auto) 21 % (24-48) L Monocytes (%) (Auto) 7 % (0-9) Eosinophils (%) (Auto) 1 % (0-3) Basophils (%) (Auto) 1 % (0-3) Neutrophils # (Auto) 6.4 x10^3/uL (1.8-7.7) Lymphocytes # (Auto) 1.9 x10^3/uL (1.0-4.8) Monocytes # (Auto) 0.7 x10^3/uL (0.0-1.1) Eosinophils # (Auto) 0.0 x10^3/uL (0.0-0.7) Basophils # (Auto) 0.1 x10^3/uL (0.0-0.2) Maternal Serum HCG Beta Subunit 70300 mIU/mL (0-5) H Sodium Level 139 mmol/L (136-145) Potassium Level 3.5 mmol/L (3.5-5.1) Chloride Level 105 mmol/L (98-107) Carbon Dioxide Level 24 mmol/L (21-32) Anion Gap 10 (6-14) Blood Urea Nitrogen 5 mg/dL (7-20) L Creatinine 0.7 mg/dL (0.6-1.0) Estimated GFR (Cockcroft-Gault) 106.7 BUN/Creatinine Ratio 7 (6-20) Glucose Level 83 mg/dL (70-99) Calcium Level 9.1 mg/dL (8.5-10.1) Total Bilirubin 0.3 mg/dL (0.2-1.0) Aspartate Amino Transferase (AST) 13 U/L (15-37) L Alanine Aminotransferase (ALT) 15 U/L (14-59) Alkaline Phosphatase 105 U/L (46-116) Total Protein 7.8 g/dL (6.4-8.2) Albumin 3.2 g/dL (3.4-5.0) L Albumin/Globulin Ratio 0.7 (1.0-1.7) L Laboratory Tests 03/10/22 17:46 Laboratory Tests 03/10/22 17:46 Vital Signs: Vital Signs Date Time Temp Pulse Resp B/P (MAP) Pulse Ox O2 Delivery O2 Flow Rate FiO2 03/10/22 17:41 88 18 113/60 (77) 99 03/10/22 16:35 98.8 98.8 EKG: EKG: [] Radiology/Procedures: Radiology/Procedures: [] Course & Med Decision Making: Course & Med Decision Making Pertinent Labs and Imaging studies reviewed. (See chart for details) This a 21-year-old female patient presenting to the ED today complaining of nausea, vomiting and abdominal pain in , symptoms for 4 days. She is a 2 para 1. CBC with a normal WBC, hemoglobin 11.7, hematocrit 35.7, CMP with no acute findings, beta-hCG 27,528. Urine positive for large amount of leukocytes. OB ultrasound noted for an IUP 6 Wks 0 days HR 113, right ovary with a complex cyst 3 .1 cm, bilateral ovary flow seen. Patient has an PERSONAL [employer]ES AGENT. Instructed him to contact the office and follow-up as soon as possible. Provided return precautions. Jose Disclaimer: Jose Disclaimer: This electronic medical record was generated, in whole or in part, using a voice recognition dictation system. Departure Departure Impression: Primary Impression: Urinary tract infection during Qualified Codes: O23.41 - Unspecified infection of urinary tract in , first trimester Additional Impressions: Ovarian cyst Qualified Codes: N83.201 - Unspecified ovarian cyst, right side Nausea and vomiting during Disposition: 01 HOME / SELF CARE / HOMELESS Condition: STABLE Referrals: CANDIDO LR MD (PCP) BACILIO TOMPKINS MD Please follow-up with your PERSONAL [employer]ES AGENT as soon as possible Patient Instructions: Ovarian Cyst, [id number], - Urinary Tract Infection Additional Instructions: You were evaluated in the emergency room and noted to have urinary tract infection in . Take the prescribed antibiotics until completed. You also have a cyst in your right ovary. Please contact your PERSONAL [employer]ES AGENT tomorrow morning and set up a follow-up appointment in the clinic Scripts Ondansetron (ONDANSETRON ODT) 4 Mg Tab.rapdis 1 TAB PO PRN Q6-8HRS, #30 TAB Prov: YASMIN GRAY OFFICE SUPPORT ASSOCIATE 03/10/22 Cephalexin (CEPHALEXIN) 500 Mg Tablet 1 TAB PO BID, #14 TAB Prov: YASMIN GRAY OFFICE SUPPORT ASSOCIATE 03/10/22 YASMIN GRAY OFFICE SUPPORT ASSOCIATE March 10, 2022 21:47
[2022-03-10] MEDS ORDERED: ONDA4TAB12 PO (22:05)
[2022-03-10 22:07] VITALS: BP 93/55
--- NOTE | 2022-03-11 12:22 | RAD ---
EXAMINATION: US OB TRANSVAGINAL (FIRST TRIMESTER PELVIC ULTRASOUND) CLINICAL HISTORY: Abdominal pain in . TECHNIQUE: Sonography of the pelvis was performed by transvaginal technique. COMPARISON: Pelvic ultrasound 2020 FINDINGS: Uterus: - Size: 9.7 x 5.8 x 5.4 cm - Myometrium: Homogeneous echotexture - Cervix: Unremarkable Gestation: - Intrauterine Gestational Sac: Single present with normal morphologic appearance - Yolk Sac: Present - Embryo: Single present - [place] Rump Length: 4 mm, corresponding gestational age 6 weeks 0 days - Heart Rate: 113 bpm - Perigestational Hemorrhage: Absent Right Ovary: - Size: 4.6 x 3.5 x 3.4 cm - 3.1 x 2.8 x 2.9 cm cyst with internal dependent echogenicity/debris. Normal ovarian blood flow. Left Ovary: - Size: 3.8 x 1.6 x 1.3 cm - Normal sonographic appearance and blood flow. Pelvic Free Fluid: Absent IMPRESSION: Single live intrauterine gestation with sonographic estimated gestational age 6 weeks 0 days and kayla mated date of delivery 11/03/2022. 3.1 cm complicated/complex right ovarian cyst as described. Electronically signed by: Pranay Winkler DO (03/10/2022 7:11 PM) [facility]
== END 2022-03-10 22:15 | disposition home or self-care (01) ==
LOC: ER 15:15
DX: O23.41 Unspecified infection of urinary tract in pregnancy, first trimester (principal); N83.201 Unspecified ovarian cyst, right side; Z3A.01 Less than 8 weeks gestation of pregnancy; Z91.018 Allergy to other foods
CPT/HCPCS: 36415; 76817; 80053; 81001; 81025; 84702; 85025; 87077; 87086; 87186; 96361; 96374; 96375; 99284; J0696; J2405; J7030